=== PATIENT | female | born 1970 | race Caucasian/White ===

== ENCOUNTER 2020-06-27 06:12 | Day surgery (SDC) | payer OTHER, SELFPAY ==
[2020-06-27 06:28] VITALS: BP 90/58; PULSE 75; RESP 16; TEMP 36.5; O2SAT 100
--- NOTE | 2020-06-27 06:35 | W.COLOREPORT ---
Date of service: 06/27/20 Time of Service: 07:36 Colonoscopy Report Date of procedure: 06/27/20 Pre-op diagnosis general: RLQ pain and screening Post-op diagnosis procedure note: other (internal hemorrhoid) Procedure: Colonoscopy Surgeon: Zakiya Dumont Anesthesia proc note operative: other (General/ ASA 2/ Monserrat Larose CRNA) Estimated blood loss (mL): 0 Pathology: none sent Complications: None Disposition: same day Indications: A\\ 50 year old healthy female who has had some bowel habit changes since she went on a hike 1 year ago. She has tried probiotics and fiber which do seem to help sometimes. She still complains of increased gassiness. Sometimes her bowel movements are hard other times they are soft. Most of the time she does go daily but that there is times when she will only go once or twice a week. She has no family history of colon cancer. She does also have a history of kidney stones which is what she thought was going on. She did have some mild hydronephrosis on the right side on her original CT scan. Follow-up ultrasound showed resolution of this. She still complains of heaviness/pain in the right flank area. P\\ Colonoscopy under sedation. Risks, benefits and complications have been reviewed. Complications include but are not limited to bleeding, pain, perforation, missed small lesion/polyp, sore throat, aspiration and adverse reaction to the medications. Questions were entertained and answered to their satisfaction and they wished to proceed. No guarantees were given or implied. (2) Bowel habit changes Prep: Miralax/Dulcolax Procedure Start Time: 07:36 Procedure End Time: 08:00 Retraction Time: 14 minutes Findings: One internal hemorrhoid Procedure Description: After informed consent was obtained the patient was taken to the procedure room and placed in a left decubitous position. Monitors were applied and a time out was done. The patients name, date of , procedure, allergies to medications and metal in their body was reviewed. The patient was then sedated. Once sedated and comfortable a rectal exam was done. External exam was normal. Internal exam revealed a normal sphincter tone and no palpable masses. The scope was then introduced and retro-flexed. One internal hemorrhoids was identified. The scope was then advanced to the cecum without difficulty. The ileocecal valve and appendiceal orifice were identified. The prep was adequate. The scope was then slowly retracted over 14 minutes back into the rectum. There were no polyps and no diverticula. The scope was removed and the patient was woken up and taken back to Same day surgery in stable condition. The patient tolerated the procedure well and there were no immediate complications. Follow up: The patient should follow up in 10 years unless they develop changes in bowel habits or other new gastrointestinal complaints.
--- NOTE | 2020-06-27 06:36 | W.PM.DSUDISC ---
Discharge Plan Disposition Patient Disposition: HOME Condition: Good Discharge Details Reason For Visit: Abdominal pain and screening Attending Provider: Zakiya Dumont Primary Care Provider: Aruna Rico V Home Meds and New Rx's Prescriptions: Continued multivitamin Tablet 1 tab PO DAILY RF: 0 Discharge Instructions Instructions: Hemorrhoids (DC) Additional Instructions: Findings: One small internal hemorrhoid otherwise normal Follow up: 10 years Please call if you develop: fevers >101.5 Nausea or Vomiting Abdominal pain that is not transient DAY SURGERY UNIT POST ENDOSCOPY INSTRUCTIONS 1. Because there will be medication in your system for the next 24 hours, you may feel a little sleepy. Your coordination will be affected. Therefore: a. Do not drive or operate dangerous equipment for 24 hours. b. Do not drink alcohol beverages for 24 hours (not even beer). c. Plan to go home and rest for the day. 2. Generally there are no restrictions on your activity after a day or so has gone by, but you may feel a bit fatigued for a few days. 3 After you arrive home you may have a light meal and return to a normal diet as you can tolerate it without feeling sick to your stomach. 4. After surgery, you may feel pain or discomfort. This should be only transient, but if it persists please contact your doctor. 5. If there are any questions regarding the findings of your procedure, please feel free to contact your doctor. 6. If you are unable to contact your doctor with a problem, contact the hospital at [phone]. 7. Continue all your regular medications unless directed otherwise. I understand the above instructions and have no questions. Signature of Patient or Responsible Adult Escort Date/Time Name of Responsible Adult Escort Signature of Nurse Date/Time Activity:: Activity as Tolerated Diet:: High fiber diet Discharge Orders Discharge Orders: Discharge Order (Routine); Ordered 06/27/20 Ordered By: Zakiya Dumont
--- NOTE | 2020-06-27 06:59 | HPE_ITS ---
Date of service: 06/27/20 Time of Service: 06:59 Assessment and Plan Assessment and plan (1) Constipation: Status: Acute Assessment and plan: A\\ 50 year old healthy female who has had some bowel habit changes since she went on a hike 1 year ago. She has tried probiotics and fiber which do seem to help sometimes. She still complains of increased gassiness. Sometimes her bowel movements are hard other times they are soft. Most of the time she does go daily but that there is times when she will only go once or twice a week. She has no family history of colon cancer. She does also have a history of kidney stones which is what she thought was going on. She did have some mild hydronephrosis on the right side on her original CT scan. Follow-up ultrasound showed resolution of this. She still complains of heaviness/pain in the right flank area. P\\ Colonoscopy under sedation. Risks, benefits and complications have been reviewed. Complications include but are not limited to bleeding, pain, perforation, missed small lesion/polyp, sore throat, aspiration and adverse reaction to the medications. Questions were entertained and answered to their satisfaction and they wished to proceed. No guarantees were given or implied. Qualifiers: Constipation type: unspecified constipation type Qualified Code(s): K59.00 - Constipation, unspecified (2) Right lower quadrant pain: Status: Acute History of Present Illness Narrative: rs. Armendariz is a pleasant 50-year-old female who a year ago went hiking. After that she started to have some changes in her bowel habits and abdominal pain. She has her history of kidney stones and thought that that is what it was. She had enough pain at one point that she ended up going to the hospital. The CT scan done at that time showed some mild hydronephrosis on the right side. No kidney stone was identified. She was then seen by urology who did an ultrasound and at that point the hydronephrosis had resolved. She continues to have complain of constipation and increased gassiness. She is taking probiotics with fiber which helps with the bowel movements. She is not good about taking it on a daily basis. She has also tried MiraLAX but only would take it if she had not gone to the bathroom in a couple of days. She has never taken it on a daily basis. Sometimes the bowel movements are hard other times they are soft. She has noted no melena or hematochezia. She does not have pain with eating. She does not complain of heartburn. There is no family history of colon cancer. She is not a smoker or drinker. She is still having monthly periods. She denies nausea or vomiting. She describes heaviness in her right flank area. Since I saw her the flank pain has eased up. Review of Systems Cardiovascular Cardiovascular: Denies chest pain, Denies chest pain at rest, Denies irregular heart rhythm, Denies dyspnea and Denies dyspnea on exertion Respiratory Respiratory: Reports cough, Denies dyspnea and Denies dyspnea on exertion Gastrointestinal Gastrointestinal: Reports as per HPI Genitourinary Genitourinary: Denies dysuria, Reports urinary incontinence and Denies urinary urgency Endocrine Endocrine: Reports system reviewed and no additional complaints, except as documented Hematologic/Lymphatic Hematologic/Lymphatic: Denies easy bruising and Denies lymphadenopathy [facility] Medical History Anemia Asthma Cellulitis Denies having a cellulitis. E. coli UTI (urinary tract infection) Nephrolithiasis Pneumonia Tendon injury Left hand tendon surgery. Surgical History H/O section H/O left knee surgery H/O tubal ligation Family History Father Bladder cancer Mother Bladder cancer Social History Smoking/Tobacco Use Status: Never Alcohol Intake: never Drug use: Never Substance use type: does not use Household members: spouse Current gender identity: female Do you feel safe at home: Yes Do you feel safe in your relationship?: Yes Meds Home Medications and Allergies Home Medications Medication Instructions Recorded Confirmed Type multivitamin 1 tab PO DAILY 04/04/20 06/25/20 History Allergies Allergy/AdvReac Type Severity Reaction Status Date / Time amoxicillin [From Augmentin] Allergy Mild rash Verified 06/27/20 06:27 clavulanic acid Allergy Mild rash Verified 06/27/20 06:27 [From Augmentin] Exam Const General: healthy appearing and comfortable Resp Effort & Inspection: normal respiratory effort Auscultation: clear to auscultation bilaterally Cardio Rate: regular rate Rhythm: regular rhythm Heart Sounds: no click, no gallops and no murmurs Results Last Vital Signs Temp 97.7 F 06/27/20 06:28 Pulse 75 06/27/20 06:28 Resp 16 06/27/20 06:28 BP 90/58 L 06/27/20 06:28 Pulse Ox 100 06/27/20 06:28 COVID-19 Screening Have you,or household,traveled outside [place] in last 14 days?: Yes Had IN PERSON contact w/suspected or confirmed C-19 person: No
[2020-06-27] MEDS: Lactated Ringers 1,000 ML 80 ML IV (07:01)
[2020-06-27 08:39] VITALS: BP 83/49; PULSE 60; RESP 14; TEMP 36.6; O2SAT 100
== END 2020-06-27 08:53 | disposition home or self-care (01) ==
PROVIDERS: PCP Physician Assistant; Visit Provider Surgery
PROC: 0DJD8ZZ Inspection of Lower Intestinal Tract, Via Natural or Artificial Opening Endoscopic (ICD-10-PCS; CPT 45378; principal; 2020-06-27 07:30)
DX: K59.00 Constipation, unspecified (principal); R10.31 Right lower quadrant pain
CPT/HCPCS: 45378; NC; J2001

== ENCOUNTER 2020-10-16 08:14 | Outpatient (REF) | payer OTHER, SELFPAY ==
[2020-10-16 13:28] LABS: HGB 11.5 g/dL (11.2-15.7); MCH 27.6 pg (27.0-33.0); MCHC 31.9 % (32.0-36.0); MCV 86.3 fL (80-95); MPV 10.7 fL (8.0-11.0); Platelet Count 282 10^3/uL (130-400); RBC 4.17 10^6/uL (3.93-5.22); RDW-SD 40.9 fL; WBC 6.43 10^3/uL (4.4-10.8)
[2020-10-16 14:14] LABS: Anion Gap 9.2 mmol/L (3-11); BUN 11 mg/dL (7-18); CO2 25.8 mmol/L (21.0-32.0); CREATININE 0.79 mg/dL (0.55-1.02); Calcium 8.7 mg/dL (8.5-10.1); Calculated LDL 79 mg/dL (<100); Chloride 102 mmol/L (98-107); Cholesterol 149 mg/dL (<200); Glucose 83 mg/dL (74-106); HDL Cholesterol 65 mg/dL (40-60); Potassium 4.5 mmol/L (3.5-5.1); Sodium 137 mmol/L (136-145); Triglyceride 25 mg/dL (<150)
== END 2020-10-16 08:34 ==
LOC: NCHCN 08:14
PROVIDERS: PCP Physician Assistant; Visit Provider Physician Assistant
DX: Z00.00 Encounter for general adult medical examination without abnormal findings (principal); Z13.220 Encounter for screening for lipoid disorders; Z13.0 Encounter for screening for diseases of the blood and blood-forming organs and certain disorders involving the immune mechanism; Z13.228 Encounter for screening for other metabolic disorders
CPT/HCPCS: 80048; 80061; 85027

== ENCOUNTER → 2022-08-29 00:44 | Outpatient (CLI) | payer OTHER, SELFPAY ==
--- NOTE | 2022-08-29 | DI.MAMMO_ITS ---
Exam(s) MAMMO SCREENING EXAM: MAMMO SCREENING CLINICAL HISTORY: SCREENING, Z12.31 TECHNIQUE: Mammograms were interpreted according to the usual protocol including computer analysis w [facility] [place] CAD system, tomosynthesis and C-view imaging. COMPARISON: FINDINGS: The breasts are heterogeneously dense. No dominant mass or suspicious clumped microcalcification is identified in either breast. The current examination is compared with previous examinations includin g May 2019 and there has been no gross interval change in appearance in comparison with the prior studies. IMPRESSION: No specific evidence of malignancy at this time. Routine screening examinations are suggested at yea rly intervals due to the family history of breast carcinoma. BI-RADS Category 1 - Negative Breast Density - Category C - Heterogeneously dense
--- OUTSIDE RECORDS SUMMARY | 2022-08-29 00:49 | XMS_ITS | Encounter Summary ---
:1970 Author Organization [facility] [place] [address] Care Team Providers Name Role Phone DERREK Laureano, Aruna Primary Care Provider [phone] Encounter Details Date Type Department Care Team Description 12/21/2018 Hospital Encounter [place] [address] Social History Tobacco Use Types Packs/Day Years Used Date Smoking Tobacco: Never Smokeless Tobacco: Never Alcohol Use Standard Drinks/Week Comments No 0 (1 standard drink = 0.6 oz pure alcoho l) Sex Assigned at Date Recorded Not on file documented as of this encounter Medications at Time of Discharge Medication Sig Dispensed Refills Start Date End Date multivitamin Capsule MULTIVITAMINS CAPS 0 013 Lacto.acidophilus-Bif.anim PROBIOTIC DAILY CAPS 0 03/04/2018 clara (PROBIOTIC) 5 billion cell Capsule, Sprinkle ascorbic acid, vitamin C, every 24 hours. 0 03/04 (VITAMIN C) 500 mg Tablet documented as of this encounter Plan of Treatment Not on filedocumented as of this encounter Procedures Procedure Name Priority Date/Time Associated Diagnosis Comme [facility] SURGICAL PATHOLOGY Routine 12/21/2018 12:00 PM Re sults for this REPORT EDT procedure are i n the results section. documented in this encounter Results Surgical Pathology Report (12/21/2018 12:00 PM EDT) Component Value Ref Test Analysis Performed At [facility] Method Time Signature Surgical [id number] ? Location: [facility] Pathology [place] Report The signing pathologist has (i) examined the relevant preparation(s) for the [facility] specimen(s) and (ii) rendered or confirmed the diagnosis(es) . HOSPITAL LABORATORY . 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 Electronically signed by: ??Ceasar GARSIA, Nilay Kee Verified: ??12/23/2018 ?Dermatopathologist, Bone & Soft Tissue Pathologist Performed at: ??-[facility] [place], [place], [place] DISCUSSION Sections show a pathcy lichenoid lymphoh istiocytic inflammation with interface reaction, necrotic keratino cytes and melanophages within the dermis. There are increased solitary melanocy bonilla withthin the epidermis without significant atypia or confluent growth. In additi on a superficial to mid perivascular lymphohistiocytic infilrate is also noted. ?? Multiple deeper sections have b een examined. It is difficult to categorize these changes. The y could represent a lichenoid keratosis. At this point of time I do no believe that the increased intraepidermal melanocytes represent a mal ignant melanocytic neoplasm. Clinical monitoring would be prudent with a low threshold for resampling should the lesi on recur. CLINICAL INFORMATION Specimen Submitted: A - Right presternal chest, shave Clinical History and Diagnosis: 3-4 week history of sensitiv e ~4 mm macule, stings, santos in a patient with history of increased sun exposure; nevus Referring Identifier: ?(not provided) SPECIMEN PROCESSING A - Labeled/Fixative: Patient demographics, formalin. Quantity/Size: ??Single, 0.9 x 0.9 x 0.1 cm. Tissue Description: Shave of holt-pink skin. Sections/Processing: Inked, quadrisected and entirely submitted in 1 cassette lab eled A1. ??apb Specimen (Source) Anatomical Collection Method Collection Time Re ceived Time Location / / Volume Laterality 12/21/2018 12:00 PM EDT Jorge Galindo MD PATHOLOGY/CYTOLOGY ORDERABLE S Performing Organization Address City/State/[place] [address] documented in this encounter Visit Diagnoses Not on filedocumented in this encounter Care Teams Belt Tender Relationship Specialty Start Date End Date Aruna Rico PA PCP - General 12/11/14 documented as of this encounter
--- OUTSIDE RECORDS SUMMARY | 2022-08-29 00:49 | XMS_ITS | Encounter Summary ---
:1970 Author Organization [facility] [place] [address] Care Team Providers Name Role Phone DERREK Laureano Nataliya Primary Care Provider [phone] Reason for Visit Reason Onset Date Comments Results 07/01/2018 Encounter Details Date Type Department Care Team Description 07/01/2018 Telephone Orthopaedics at [facility] Bindu Putnam RMA Results [facility] [place] [address] Social History Tobacco Use Types Packs/Day Years Used Date Smoking Tobacco: Never Smokeless Tobacco: Never Alcohol Use Standard Drinks/Week Comments No 0 (1 standard drink = 0.6 oz pure alcoho l) Sex Assigned at Date Recorded Not on file documented as of this encounter Miscellaneous Notes Telephone Encounter - Ramona Wright RN - 07/06/2018 10:46 AM EDT Subjective: Telephone call form patient. She is returning the call from yesterday regarding her MRI. Plan:Reviewed note below with patient regarding recommendations. She is already doing PT. She is aware and in agreement with the plan. She was advised to call with any further concerns or questions andshould call if no improvement with PT. Patient/Responsible democrat voices an understanding of advice? Yes Patient/Responsible democrat intends to comply with action/disposition:Yes Telephone Encounter - Linda Gallo RN - 07/05/2018 9:47 AM EDT Reviewed imaging with Saeed ANGLIN - due to partial thickness tears, we are recommending a course of PT at this time, if this is not successful we can consider injections. Attempted to call patient with this advice, reached identified voicemail, left message with request to call us with how she would like to proceed. We are happy to place PT orders and/or schedule a follow up appointment on Thursday or to discuss further Telephone Encounter - Bindu Putnam RMA - 07/01/2018 3:53 PM EDT Subjective: RESULTS [place]gar[place] questions/Assessment: Carolina called for the results of her MRI. She reports that she had it done on06/29/18. Over the next 4 days she will be traveling and would like Dr Hall to call her cell phone. [phone] Plan: I let Carolina know that I would send a message to Dr Hall. Patient/Responsible democrat voices an understanding of advice? yes documented in this encounter Plan of Treatment Not on filedocumented as of this encounter Visit Diagnoses Not on filedocumented in this encounter Care Teams Wheel Blocker Relationship Specialty Start Date End Date Aruna Rico PA PCP - General 12/11/14 documented as of this encounter
--- OUTSIDE RECORDS SUMMARY | 2022-08-29 00:49 | XMS_ITS | Encounter Summary ---
:1970 Author Organization [facility] [place] [address] Care Team Providers Name Role Phone DERREK Laureano, Aruna Primary Care Provider [phone] Encounter Details Date Type Department Care Team Description 07/17/2016 Ancillary Procedure Radiology Library at [facility] DERREK [facility] [address] [place] [address] [place] [address] [phone] Social History Tobacco Use Types Packs/Day Years Used Date Smoking Tobacco: Never Sex Assigned at Date Recorded Not on file documented as of this encounter Plan of Treatment Not on filedocumented as of this encounter Procedures Procedure Name Priority Date/Time Associated Diagnosis Comme nts FILM LIBRARY Routine 07/17/2016 12:00 AM Results for this STORAGE ONLY CT EDT procedure ar e in ABDOMEN AND PELVIS the resul ts section. documented in this encounter Results Film Library- Storage Only CT Abdomen & Pelvis (07/17/2016 12:00 AM EDT) Specimen (Source) Anatomical Location Collection Method / Collectio n Time Received Time / Laterality Volume Narrative RAD - 09/22/2019 9:57 AM EST This exam is auto-finalizing. It's purpo se is for storage only. DERREK [place]ning [facility] FILM LIBRARY ORDERABLES Performing Organization Address City/State/ZIP Code Phon e Number RAD [facility] [place], [place] documented in this encounter Visit Diagnoses Not on filedocumented in this encounter Care Teams Blood Donor Recruiter Relationship Specialty Start Date End Date Aruna Rico PA PCP - General 12/11/14 documented as of this encounter
--- OUTSIDE RECORDS SUMMARY | 2022-08-29 00:49 | XMS_ITS | Encounter Summary ---
:1970 Author Organization [facility] [place] [address] Care Team Providers Name Role Phone DERREK Laureano, Aruna Primary Care Provider [phone] Reason for Referral Diagnostic Test (Routine) - Closed Specialty Diagnoses / Procedures Referred By Contact Refer red To Contact Radiology Diagnoses Chronic pain in left shoulder Ryan Hall MD [facility] Rad Mri Procedures MRI Shoulder wo Contrast Left (Generic) [facility] [place] [address] [place] [address] Referral ID Status Reason Start Date Expiration Date Visits V isits Requested Authorized [id number] Closed Specialty 06/29/2018 08/27/2018 1 1 Service Requested Reason for Visit Diagnostic Test (Routine) - Closed Specialty Diagnoses / Procedures Referred By Contact Refer red To Contact Radiology Diagnoses Chronic pain in left shoulder Ryan Hall MD [facility] Rad Mri Procedures MRI Shoulder wo Contrast Left (Generic) [facility] [place] [address] [place] [address] Referral ID Status Reason Start Date Expiration Date Visits V isits Requested Authorized [id number] Closed Specialty 06/29/2018 08/27/2018 1 1 Service Requested Encounter Details Date Type Department Care Team Description 06/29/2018 Hospital Encounter MRI at [facility] Ryan Hall, Chronic pain in left [facility] shoulder [facility] [address] ORTHOPAEDIC [phone] [place] [address] Social History Tobacco Use Types Packs/Day Years [...] Name Priority Date/Time Associated Diagnosis Comme nts MRI SHOULDER LEFT Routine 06/29/2018 6:17 PM Chronic pain in l eft Results for this WO CONTRAST EDT shoulder procedure are i n the results section. documented in this encounter Results MRI Shoulder wo Contrast Left (Generic) (06/29/2018 6:17 PM EDT) Anatomical Region Laterality Modality Shoulder Left Magnetic Resonance Specimen (Source) Anatomical Location Collection Method / Collectio n Time Received Time / Laterality Volume Impressions 06/30/2018 8:25 AM EDT 1. ??Tendinosis and low-grade articular-surface fraying of the subscapularis tendon. Focal low-grade partial-thicknes s articular-surface tear of the anteriormost supraspinatus tendon fibers , best seen on series 6 image 23, measuring no more than 0.5 cm in AP dime nsion, without tendon retraction or muscle atrophy. 2. ??Moderate to marked AC joint degener ative hypertrophy. 3. ??Degenerative fraying of the posteri or superior labrum, without discernible hyaline cartilage defect. 4. ??Unremarkable MR appearance of the l tiki head of the biceps tendon. Narrative 06/30/2018 8:25 AM EDT EXAMINATION: MRI SHOULDER WO CONTRAST LEFT (GENERIC) CLINICAL HISTORY: left shoulder pain TECHNIQUE: Routine noncontrast MR of the Left shoulder was performed. COMPARISON: Attention is also directed t o left shoulder radiographs dated 05/31/2018 FINDINGS: Glenohumeral joint: There is no fracture or bone marrow edema. Glenohumeral alignment is normal. No focal cartilage defect is discerned. There is no glenohumeral joint effusion. Acromioclavicular joint: The acromion griffin s a flat morphology. The acromioclavicular joint demonstrates mod erate to marked degenerative arthropathy characterized by capsular thickening, sm all marginal osteophytes, and minimal reactive marrow signal change. The hyper trophic acromioclavicular joint indents the underlying supraspinatus myotendinou s junction. Rotator cuff and bursae: There is tendin osis and low-grade articular-surface fraying of the subscapularis tendon. The re is a focal low-grade partial-thickness articular-surface tear of the anteriormost supraspinatus tendon fibers, best seen on series 6 neo ge 23, measuring no more than 0.5 cm in anteroposterior dimension, without tendo n retraction. The infraspinatus and teres minor tendons are normal. There is no muscle atrophy. There is no subacromial/subdeltoid bursal fluid. Biceps tendon and glenoid labrum: The bi ceps tendon is normal in appearance. There is degenerative fraying of the pos terior superior labrum. Other: Incidentally noted lobulated T2-b right structure humeral head measuring up to 0.9 cm without surrounding bone ma rrow edema is compatible with a cartilage rest or a cartilage lesion suc h as an enchondroma. Procedure Note Freda Avila MD - 06/30/2018Formatting o f this note might be different from the original. EXAMINATION: MRI SHOULDER WO CONTRAST VIVIAN FT (GENERIC) CLINICAL HISTORY: left shoulder pain TECHNIQUE: Routine noncontrast MR of the Left shoulder was performed. COMPARISON: Attention is also directed t o left shoulder radiographs dated 05/31/2018 FINDINGS: Glenohumeral joint: There is no fracture or bone marrow edema. Glenohumeral alignment is normal. No focal cartilage defect is discerned. There is no glenohumeral joint effusion. Acromioclavicular joint: The acromion griffin s a flat morphology. The acromioclavicular joint demonstrates mod erate to marked degenerative arthropathy characterized by capsular thickening, sm all marginal osteophytes, and minimal reactive marrow signal change. The hyper trophic acromioclavicular joint indents the underlying supraspinatus myotendinou s junction. Rotator cuff and bursae: There is tendin osis and low-grade articular-surface fraying of the subscapularis tendon. The re is a focal low-grade partial-thickness articular-surface tear of the anteriormost supraspinatus tendon fibers, best seen on series 6 neo ge 23, measuring no more than 0.5 cm in anteroposterior dimension, without tendo n retraction. The infraspinatus and teres minor tendons are normal. There is no muscle atrophy. There is no subacromial/subdeltoid bursal fluid. Biceps tendon and glenoid labrum: The bi ceps tendon is normal in appearance. There is degenerative fraying of the pos terior superior labrum. Other: Incidentally noted lobulated T2-b right structure humeral head measuring up to 0.9 cm without surrounding bone ma rrow edema is compatible with a cartilage rest or a cartilage lesion suc h as an enchondroma. IMPRESSION 1. Tendinosis and low-grade articular-brown rface fraying of the subscapularis tendon. Focal low-grade partial-thicknes s articular-surface tear of the anteriormost supraspinatus tendon fibers , best seen on series 6 image 23, measuring no more than 0.5 cm in AP dime nsion, without tendon retraction or muscle atrophy. 2. Moderate to marked AC joint degenerat shannan hypertrophy. 3. Degenerative fraying of the posterior superior labrum, without discernible hyaline cartilage defect. 4. Unremarkable MR appearance of the rashid g head of the biceps tendon. Ryan Hall MD [facility] ORDERABLES documented in this encounter Visit Diagnoses Diagnosis Chronic pain in left shoulder Pain in joint, shoulder region documented in this encounter Care Teams Nurse Informatics Educator Relationship Specialty Start Date End Date Aruna Rico PA PCP - General 12/11/14 documented as of this encounter
--- OUTSIDE RECORDS SUMMARY | 2022-08-29 00:49 | XMS_ITS | Clinical Summary ---
:1970 Author Organization [facility] [place] [address] Care Team Providers Name Role Phone DERREK Laureano, Aruna Primary Care Provider [phone] Allergies No known active allergies Medications Medication Sig Dispensed Refills Start Date End Date Status multivitamin Capsule MULTIVITAMINS CAPS 0 12/08/2012 Active Lacto.acidophilus-Bi PROBIOTIC DAILY CAPS 0 03/04/20 18 Active f.animalis (PROBIOTIC) 5 billion cell Capsule, Sprinkle ascorbic acid, every 24 hours. 0 03/04/2018 Active vitamin C, (VITAMIN C) 500 mg Tablet Active Problems Problem Noted Date Acute pain of left shoulder 06/29/2018 Nevus 01/18/2015 Family History Medical History Relation Comments Cancer Father Cancer Mother Relation Status Comments Father Mother Social History Tobacco Use Types Packs/Day Years Used Date Smoking Tobacco: Never Smokeless Tobacco: Never Alcohol Use Standard Drinks/Week Comments No 0 (1 standard drink = 0.6 oz pure alcoho l) Sex Assigned at Date Recorded Not on file Last Filed Vital Signs Vital Sign Reading Time Taken Comments Blood Pressure 110/64 07/25/2019 6:55 PM EDT Pulse 62 07/25/2019 6:55 PM EDT Temperature 37.1 ??C (98.8 ??F) 07/25/2019 6:55 PM EDT Respiratory Rate 15 07/25/2019 6:55 PM EDT Oxygen Saturation 100% 07/25/2019 6:55 PM EDT Inhaled Oxygen Concentration - - Weight 72.1 kg (159 lb) 07/25/2019 6:55 PM EDT Height 165.1 cm (5' 5) 07/25/2019 6:55 PM EDT Body Mass Index 26.46 07/25/2019 6:55 PM EDT Plan of Treatment Health Maintenance Due Date Last Done Comments Hepatitis B vaccine (0-59 yrs) (1 of 3 - 3-dose series) 04/05/19 72 Covid-19 Vaccine (#1) 1970 HIV screen 1990 Hepatitis C Screening 1990 Tdap adult 1991 Tetanus vaccine 1991 HPV test 2002 PAP Smear 2002 Breast Cancer Share Decision Needed 2012 Colonoscopy 2017 Breast Cancer screening 2022 Zoster vaccine (1 of 2) 2022 Influenza (Flu) vaccine (1 of 1 - Influenza standard 06/05/2022 series) Insurance Payer Benefit Plan / Subscriber ID Effective Dates Phone Addre ss Type Group MVP MVP [place] [id number] 2019-Present [phone] [facility] [address] [place] [address] Care Teams Hide Handler Relationship Specialty Start Date End Date Aruna Rico PA PCP - General 12/11/14
--- OUTSIDE RECORDS SUMMARY | 2022-08-29 00:49 | XMS_ITS | Encounter Summary ---
:1970 Author Organization [facility] [place] [address] Care Team Providers Name Role Phone DERREK Laureano Nataliya Primary Care Provider [phone] Reason for Referral Diagnostic Test (Routine) - Closed Specialty Diagnoses / Procedures Referred By Contact Refer red To Contact Radiology Diagnoses Chronic pain in left shoulder Ryan Hall MD [facility] Rad Mri Procedures MRI Shoulder wo Contrast Left (Generic) [facility] [place] [address] [place] [address] Referral ID Status Reason Start Date Expiration Date Visits V isits Requested Authorized [id number] Closed Specialty 06/29/2018 08/27/2018 1 1 Service Requested Reason for Visit Reason Comments Left Shoulder Pain Consultation (Routine) - Specialty Diagnoses / Procedures Referred By Contact Refer red To Contact Orthopaedics Diagnoses LEFT SHOULDER PAIN Aruna Rico V [facility] [place] [facility] [address] PA [address] [address] [place] [address] Referral ID Status Reason Start Date Expiration Date Visits V isits Requested Authorized [id number] Consult, 06/14/2018 06/14/2019 6 6 [facility] Encounter Details Date Type Department Care Team Description 06/29/2018 Office Visit Orthopaedics at [facility] Chronic pain in left [facility] [place] [phone] Social History Tobacco Use Types Packs/Day Years Used Date Smoking Tobacco: Never Smokeless Tobacco: Never Alcohol Use Standard Drinks/Week Comments No 0 (1 standard drink = 0.6 oz pure alcoho l) Sex Assigned at Date Recorded Not on file documented as of this encounter Last Filed Vital Signs Vital Sign Reading Time Taken Comments Blood Pressure 106/67 06/29/2018 9:33 AM EDT Pulse 58 06/29/2018 9:33 AM EDT Temperature - - Respiratory Rate - - Oxygen Saturation - - Inhaled Oxygen Concentration - - Weight 69.4 kg (153 lb) 06/29/2018 9:33 AM EDT stad Height 166.4 cm (5' 5.5) 06/29/2018 9:33 AM EDT staed Body Mass Index 25.07 06/29/2018 9:33 AM EDT documented in this encounter Progress Notes Saeed Bella PA - 06/29/2018 9:30 AM EDT PATIENT NAME: Carolina Armendariz AGE: 48 y.o. MR#: [id number] DATE OF VISIT: 06/29/2018 DATE OF INJURY/ONSET: 2017 STAFF: Dr. Hall CHIEF COMPLAINT: Left shoulder pain HISTORY OF PRESENT ILLNESS: Ms. Armendariz is a right hand dominant 48 y.o. female who comes into clinic today for evaluation of her left shoulder. She has been experiencing pain since she fell on stairs inFebruary of 2017. Patient has not had any formal PT for this, but has been doing gentle ROM exercises she got from a friend who practices as a PT. She uses ice as much as she can, but does not take anyTylenol or Ibuprofen for the pain. Patients states she is unable to sleep on the left shoulder due to pain, and has had decreased ROM since November. She has difficulty with her ADLs, most specificallytasks that require her to reach behind her back and overhead. Patient is quite active with hiking and has noticed pain with this as well as any sort of throwing motion. The pain radiates down her arm, but she denies any numbness or tingling. At today's visit, Ms. Armendariz does not have any fevers, chills, or other signs of infection. Medications and Allergies were reviewed in eD-[facility] PAST MEDICAL HX: History reviewed. No pertinent past medical history. PAST SURGICAL HX: History reviewed. No pertinent surgical history. SOCIAL HX: Social History Occupational History ??? Not on file. Social History Main Topics ??? Smoking status: Never Smoker ??? Smokeless tobacco: Never Used ??? Alcohol use No ??? Drug use: No ??? Sexual activity: Not on file Activities: Hiking, skiing ROS: Musculoskeletal: see HPI General Health, Prior Treatments, PreExisting Condition, Health Habits, About You 06/29/2018 PROMIS-10 General Health Excellent PROMIS-10 Quality of Life Excellent PROMIS-10 Physical Health Excellent PROMIS-10 Mental Health Excellent PROMIS-10 Social Activity Excellent PROMIS-10 Everyday Activities Completely PROMIS-10 Pain 8 PROMIS-10 Fatigue None PROMIS-10 Social Roles Excellent PROMIS-10 Anxious or Depressed Rarely PROMIS PHYSICAL SCORE (range 16-68) 54.1 PROMIS MENTAL SCORE (range 21-68) 62.5 Alzheimers or dementia No Cirrohosis or liver disease No HIV/AIDS No Pain in more than one joint in legs Yes Back or neck pain No Heart attack No Heart failure No Unclog/bypass leg arteries No Stroke, blood clot, TIA No Asthma Yes Take medication for asthma No Emphysema, chronic bronchities, or COPD No Stomach ulcers/peptic ulcer disease No Diabetes No Poor kidney function No Rheumatic condtions No Cancer No Weight (lbs) 152 Height (feet) 5 feet Height (Inches) 5 BMI 25.29 (Overweight) Ever used tobacco products No Ever used alcoholic beverages Yes Alcohol frequency Once or twice WHO - Alcohol Advice 2 (You are at low risk of health and other problems from your current pattern of use.) Live Alone No Marital situation Living with significant other Schooling More than 4 - year college Combined Household Income $50,000 to less than $75,000 # People Supported 3 Egyptian, , No, not Egyptian// Race White Health Literacy Extremely Currently working Yes Current job situation Full-time [facility] Response 06/29/2018 ASES VAS-LEFT 7 ASES ADL-LEFT ARM 7 ASES LEFT ARM 26.66 PHYSICAL EXAM: Ms. Armendariz is a 48 y.o. female who is alert and oriented. She is in no acute discomfort and is resting comfortably in the exam room. Inspection: No erythema, swelling or warmth is noted over the left shoulder. Palpation: She has point tenderness over the GH joint and biceps tendon. ROM: Forward flexion- 150 degrees External rotation- 30 degrees Internal rotation- PSIS Abduction- 120 degrees Strength: Forward flexion- 5/5 External rotation- 5/5 Internal rotation- 4/5 Abduction-4/5 Orthopedic testing: Empty can- positive Speed's- positive Lift off-positive Song's-negative Yergason's- negative Hawkin's-negative Neurovascular: Sensation and motor function are in tact along the axillary, musculocutaneous, radial, ulnar, and median nerve roots. Cap refill 3+, distal radial pulse 2+. DIAGNOSTIC STUDIES: Xrays from today were personally reviewed and there is no evidence of fracture of dislocation. Joint space appears to be preserved. It is difficult to see the spacing between the acromion and humeral head as a true AP was not done. ASSESSMENT: Mr. Armendariz is a 49 y/o female who is 7 months s/p fall onto her shoulder. She has had continued pain since this time with decreased ROM. Her exam was significant for weakness with abduction and internal rotation which was supported by a positive empty can and liftoff tests. This is suggestive of a a rotator cuff tear, but an MRI is warranted to confirm this. Due to the distance she has to travel, if she cannot get the MRI done today, she would like to have this done closer to home in [place]. PLAN: We discussed the use of a broom/stick to perform gentle ROM exercises. An order for left shoulder MRI w/o contrast was placed and may be completed today if room is available. If she is unable to complete this today, she would like to have it completed closer to home. She will follow up once the MRI has been completed to further discuss treatment options. The patient understands to contact us ifthey have any other questions or concerns. I saw Ms. Armendariz with Dr. Hall and he agrees with this plan. The above documentation was completed using [employer] voice recognition software. documented in this encounter Plan of Treatment Not on filedocumented as of this encounter Results MRI Shoulder wo Contrast [...] the original. EXAMINATION: MRI SHOULDER WO CONTRAST LE FT (GENERIC) CLINICAL HISTORY: left shoulder pain [...] rashid g head of the biceps tendon. Rayn Hall MD IMG MRI ORDERABLES documented in this encounter Visit Diagnoses Diagnosis Chronic pain in left shoulder Pain in joint, shoulder region Chronic pain in left shoulder Pain in joint, shoulder region documented in this encounter Care Teams Info Analyst Relationship Specialty Start Date End Date Aruna Rico PA PCP - General 12/11/14 documented as of this encounter
--- OUTSIDE RECORDS SUMMARY | 2022-08-29 00:49 | XMS_ITS | Encounter Summary ---
:1970 Author Organization [facility] [place] [address] Care Team Providers Name Role Phone DERREK Laureano, Aruna Primary Care Provider [phone] Encounter Details Date Type Department Care Team Description 05/31/2018 Hospital Encounter Radiology [facility] at [facility] [place] [address] [place] [id number] [phone] (Wo rk) Social History Tobacco Use Types Packs/Day Years [...] Associated Diagnosis Comme nts FILM LIBRARY Routine 05/31/2018 12:00 AM Results for this STORAGE ONLY DX EDT procedure ar e in SHOULDER the results section. documented in this encounter Results Film Library- Storage Only DX Shoulder (05/31/2018 12:00 AM EDT) Specimen (Source) Anatomical Location Collection Method / Collectio n Time Received Time / Laterality Volume Narrative RAD - 06/15/2018 11:00 AM EDT This exam is for storage only and is aut o-finalizing. Ryan Hall MD IMG FILM LIBRARY ORDERABLES Performing Organization Address City/State/ZIP Code Phon e Number RAD [place], [place] documented in this encounter Visit Diagnoses Not on filedocumented in this encounter Care Teams Hairspring Staker Relationship Specialty Start Date End Date Aruna Rico PA PCP - General 12/11/14 documented as of this encounter
--- OUTSIDE RECORDS SUMMARY | 2022-08-29 00:49 | XMS_ITS | Encounter Summary ---
:1970 Author Organization [facility] [place] [address] Care Team Providers Name Role Phone DERREK Laureano Nataliya Primary Care Provider [phone] Reason for Visit Reason Comments Follow-up Left Shoulder Pain Left Hand Pain ganglion/long finger lac Consultation (Routine) - Specialty Diagnoses / Procedures Referred By Contact Refer red To Contact Orthopaedics Diagnoses GANGLION CYST OF LEFT DORSAL WRIST, PAIN LEFT MIDDLE FINGER LAC OCT 2017 Aruna Rico V [facility] Procedures requesting hand specialist DERREK [address] [address] [place] [address] Referral ID Status Reason Start Date Expiration Date Visits V isits Requested Authorized [id number] Consult, 06/02/2018 06/02/2019 6 6 [facility] Encounter Details Date Type Department Care Team Description 08/10/2018 Office Visit Orthopaedics at [facility] [place] Adhesive capsulitis of [facility] Vidhya [place] [address] Social History Tobacco Use Types Packs/Day Years Used Date Smoking Tobacco: Never Smokeless Tobacco: Never Alcohol Use Standard Drinks/Week Comments No 0 (1 standard drink = 0.6 oz pure alcoho l) Sex Assigned at Date Recorded Not on file documented as of this encounter Last Filed Vital Signs Vital Sign Reading Time Taken Comments Blood Pressure 99/60 08/10/2018 2:07 PM EST Pulse 77 08/10/2018 2:07 PM EST Temperature - - Respiratory Rate - - Oxygen Saturation - - Inhaled Oxygen Concentration - - Weight 70.3 kg (155 lb) 08/10/2018 2:07 PM EST Height 166.4 cm (5' 5.5) 08/10/2018 2:07 PM EST Body Mass Index 25.4 08/10/2018 2:07 PM EST documented in this encounter Progress Notes Ryan Hall MD - 08/10/2018 2:00 PM EST Ryan Hall dictating orthopedic consultation on Carolina Armendariz. She has a complicated history that has been clearly outlined in the past. After we last saw her and reviewed the MRI of her left shoulder-[place] had a left shoulder injection. She describes a subacromial injection rather than a glenohumeral injection. She reports that it is very uncomfortable. She rested for a while and is just begun increasing her range of motion. She is pleased with the physical therapist with with whom she is working and feels that that has helped and is continuing to improve. She is also asking about her left middle finger. History of that isthat she sustained a laceration on the dorsum of the PIP joint of her left middle finger in October while on [place]. She Dr. she saw Dr. Carvajal who repaired what sounds like her central slip/dorsal apparatus. She then had apparently scarring postoperatively and it sounds as though she had aTina lysis. She is been working in hand therapy but has questions about the cyst on her left middle finger. Physical examination: Bjjivhd-mbyn-ccfkwxqdm very pleasant fit appearing white female no acute distress Left shoulder-she has no pain at the AC joint she has pain off the anterolateral corner of the acromion in both anterior posterior joint line tenderness no evidence of infection total active elevation approximately 130 degrees she has significant limitation of both her internal and external rotation she has 4+ out of 5 strength with supraspinatus infraspinatus subscapularis testing. Her left elbow wrist are nontender. Her left middle finger she has well-healed incisions over the PIP joint. There is no evidence of infection I do think she has a prominent suture. She is painless range of motion of the MCP joint she lacks approximately 10 degrees of full extension at the PIP joint her flexion at the P IP joint is approximately 80 degrees. DIP joint approximately 30 degrees. Distal neurovascular exam is intact. X-rays of the left hand were reviewed I see no obvious bony deformities. Plan: We long discussion regarding this current situation with respect to her left shoulder and her left middle finger. At this point I think she would benefit most by continued therapy on the left shoulder to optimize her range of motion. If she remains symptomatic after she is had return of her range of motion-perhaps she would benefit by a left shoulder arthroscopy to address her partial-thicknessrotator cuff tear and impingement. With respect to her left middle finger I have encouraged her to continue retrograde massage continueto work on her range of motion. She wanted to leave it that she would return on a as needed basis. documented in this encounter Plan of Treatment Not on filedocumented as of this encounter Visit Diagnoses Diagnosis Adhesive capsulitis of left shoulder Adhesive capsulitis of shoulder documented in this encounter Care Teams Business Performance Analyst Relationship Specialty Start Date End Date Aruna Rico PA PCP - General 12/11/14 documented as of this encounter
--- OUTSIDE RECORDS SUMMARY | 2022-08-29 00:49 | XMS_ITS | Encounter Summary ---
:1970 Author Organization [facility] [place] [address] Care Team Providers Name Role Phone DERREK Laureano Nataliya Primary Care Provider [phone] Encounter Details Date Type Department Care Team Description 12/22/2018 External Results Medical Records Provider, [place] [address] Social History Tobacco Use Types Packs/Day [...] Name Priority Date/Time Associated Diagnosis Comme nts SURGICAL PATHOLOGY Routine 12/22/2018 Results f or this SCAN procedure are i n the results section . documented in this encounter Results Scan Doc: Surgical Pathology (12/22/2018) Narrative This result has an attachment that is no t available. Historical Provider MD MEDIA MGR SCAN EXT ORDR/RSLT documented in this encounter Visit Diagnoses Not on filedocumented in this encounter Care Teams Truck Safety Inspector Relationship Specialty Start Date End Date Aruna Rico PA PCP - General 12/11/14 documented as of this encounter
--- OUTSIDE RECORDS SUMMARY | 2022-08-29 00:49 | XMS_ITS | Encounter Summary ---
:1970 Author Organization [facility] [place] [address] Care Team Providers Name Role Phone DERREK Laureano, Aruna Primary Care Provider [phone] Encounter Details Date Type Department Care Team Description 12/19/2020 Hospital [place] [address] Social History Tobacco Use Types Packs/Day [...] Name Priority Date/Time Associated Diagnosis Comme nts COVID-19 PCR Routine 12/19/2020 1:00 PM Results f or this EDT procedure are i n the results section . documented in this encounter Results COVID-19 PCR (12/19/2020 1:00 PM EDT) [facility] Method Time Signature SARS-CoV-2 Not Detected Not Detected [facility] Comment: This result should be interpreted in com bination with the clinical observations, patient history and epidem iological information in making a final diagnosis. For testing of asymptomatic i ndividuals, assay performance characteristics and clinical utility hav e not been evaluated. Testing for SARS-CoV-2 (Severe acute respiratory syn drome coronavirus 2, formerly known as 2019 novel coronavirus or 2019-nCoV) to aid in the diagnosis of COVID-19 is performed using the [employer] RealTime SARS -CoV-2 Assay as authorized by the FDA Emergency Use Authorization (EUA). This EUA assay is intended for In-vitro Diagnostic (IVD) use with respiratory sp ecimens such as nasopharyngeal swabs collected from individuals during the ac marjan phase of infection. This assay is performed based on the instructions for use provided by [employer] and additional guidance provided by CDC and FDA. Testing is performed in the [facility] Laboratory within the Department of Pathology and Laboratory Medicine at [facility], certified under the Clinical Laboratory Improvement Amendments of 1988 (CLIA), 42 U.S.C. 263a, to perform high complexi ty tests. Assay performance has been verified according to clinical laborator y regulatory requirements for use with specimens collected from individuals vishal pected of COVID-19. Test results are provided above. A result of ? Not Detected? indicates that the viral RNA target is not present above the limit of detect ion, but does not preclude SARS-CoV-2 infection. False negative results may oc cur if a specimen is improperly collected, transported or handled; if am plification inhibitors are present; or if inadequate numbers of viral particles are present in the specimen. When a diagnostic test is negative, the possibi lity of a false negative result should be considered in the context of a patien t? s recent exposures and the presence of clinical signs and symptoms consisten t with COVID-19. A result of ? Detected? indicates that RNA from SARS-CoV-2 was d etected and the patient is infected. As required or requested by public health a uthorities, positive specimens may be sent for additional testing. Positive an d negative predictive values for this test are highly dependent on disease pre valence. A result of ? Invalid? indicates that neither the viral RNA tar gets nor the internal control target was detected. An invalid result suggests the presence of inhibitors. Recollection and re-testing is recommend ed in the case of an invalid result. CDC COVID-19 criteria for testing on hum an specimens and clinical management guidance information are available at e CDC Coronavirus Disease 2019 (COVID-19) webpage under ? Information for Healthcare Professionals? (https://www.cdc.gov/coronavirus/2019-nc ov/hcp/index.html) Additional information about this and ot her EUA tests can be found in provider and patient fact sheets at the following FDA website: https://www.fda.gov/medical-devices/tubmfrosvub-dhcdpry-9577-taoif-38-ucetxxeoq- fyb-odytjhhdjldryj-vncetob-devices/donqh-nnfekujkvej-mkih SARS-Cov-2 RNA Source SECUR[employer] ANALYST Swab [facility] Specimen (Source) Anatomical Collection Method Collection Time Re ceived Time Location / / Volume Laterality Nasopharyngeal swab Other / Unknown 12/19/2020 1:00 (specimen) PM EDT 2:36 AM EDT Resulting Agency Comment Spec In Lab Leonila Sanders CUSTOMER SERVICE OFFICER MICROBIOLOGY - GENERAL ORDER ALFREDITO Performing Organization Address City/State/[place] [address] documented in this encounter Visit Diagnoses Not on filedocumented in this encounter Care Teams Director Supply Chain Relationship Specialty Start Date End Date Aruna Rico PA PCP - General 12/11/14 documented as of this encounter
--- OUTSIDE RECORDS SUMMARY | 2022-08-29 00:49 | XMS_ITS | Encounter Summary ---
:1970 Author Organization [facility] [place] [address] Care Team Providers Name Role Phone DERREK Laureano Nataliya Primary Care Provider [phone] Reason for Visit Reason Comments Abdominal Pain Encounter Details Date Type Department Care Team Description 07/25/2019 Emergency [place] [address] Social History Tobacco Use Types Packs/Day [...] Mass Index 26.46 07/25/2019 6:55 PM EDT documented in this encounter Medications at Time of Discharge Medication Sig Dispensed Refills Start Date End Date multivitamin Capsule MULTIVITAMINS CAPS 0 013 Lacto.acidophilus-Bif.anim PROBIOTIC DAILY CAPS 0 03/04/2018 clara (PROBIOTIC) 5 billion cell Capsule, Sprinkle ascorbic acid, vitamin C, every 24 hours. 0 03/04 (VITAMIN C) 500 mg Tablet documented as of this encounter Miscellaneous Notes ED Triage - Debbi Tipton, RN - 07/25/2019 6:53 PM EDT Possible appendicitis. Was seen at urgent care and told to come to the ED for further workup Abdominal pain started Thursday. Lower right quadrant. Has had constipation. With some dizziness documented in this encounter Plan of Treatment Not on filedocumented as of this encounter Visit Diagnoses Not on filedocumented in this encounter Care Teams Debridging Machine Operator Relationship Specialty Start Date End Date Aruna Rico PA PCP - General 12/11/14 documented as of this encounter
--- OUTSIDE RECORDS SUMMARY | 2022-08-29 00:49 | XMS_ITS | Encounter Summary ---
:1970 Author Organization [facility] [place] [address] Care Team Providers Name Role Phone DERREK Laureano, Aruna Primary Care Provider [phone] Reason for Visit Reason Comments Skin Lesion Encounter Details Date Type Department Care Team Description 01/18/2015 Office Visit Dermatology at [facility] Jorge Pretty MD [place] [address] [address] DERMATOLOGY [phone] [place], [place] [address] (Wo rk) Social History Tobacco Use Types Packs/Day Years Used Date Smoking Tobacco: Never Sex Assigned at Date Recorded Not on file documented as of this encounter Patient Instructions Patient InstructionsSamantha Hagan LPN - 01/18/2015 1:50 PM EDT Images from the original note were not included. [facility] Moles: After Your Visit Your Care Instructions Moles are skin growths made up of cells that produce color (pigment). A mole can appear anywhere on the skin, alone or in groups. Most people get a few moles during their first 20 years of life. They are usually brown in color but can be blue, black, or flesh-colored. Most moles are harmless and do not cause pain or other symptoms, unless you rub them or they bump against something. You usually do not need treatment for moles. But some can turn into cancer. Talk to your doctor if amole bleeds, itches, santos, or changes size or color. Also let your doctor know if you get a new mole. Make sure to wear sunscreen and other sun protection every day to help prevent skin cancer. Follow-up care is a barrett part of your treatment and safety. Be sure to make and go to all appointments, and call your doctor if you are having problems. It???s also a good idea to know your test resultsand keep a list of the medicines you take. How can you care for yourself at home? ?? Check all the skin on your body once a month for skin growths or other changes, such as in the color and feel of the skin. ?? supervising architect front of a full-length mirror. Look carefully at the front and back of your body. Then look at your right and left sides with your arms raised. ?? Bend your elbows and look carefully at your forearms, the back of your upper arms, and your palms. ?? Look at your feet, the bottoms of your feet, and the spaces between your toes. ?? Use a hand mirror to look at the back of your legs, the back of your neck, and your back, rear end (buttocks), and genital area. Part the hair on your head to look at your scalp. ?? If you see a change in a skin growth, contact your doctor. Look for: ?? A mole that bleeds. ?? A fast-growing mole. ?? A scaly or crusted growth on the skin. ?? A sore that will not heal. To prevent skin cancer ?? Always wear sunscreen on exposed skin. Make sure the sunscreen blocks ultraviolet rays (both UVA and UVB) and has a sun protection factor (SPF) of at least 15. Use it every day, even when it is cloudy. Some doctors may recommend a higher SPF, such as 30. ?? Wear a wide-brimmed hat and long sleeves and pants if you are going to be outdoors for very long. ?? Avoid the sun between 10 a.m. and 4 p.m., which is the peak time for the sun's ultraviolet rays. ?? Avoid sunburns, tanning booths, and sunlamps. ?? Be sure to protect children from the sun. Sunburns in childhood damage the skin and increase the risk of cancer. When should you call for help? Watch closely for changes in your health, and be sure to contact your doctor if: ?? A mole looks different than it did before. It may have changed in size, color, shape, or the way it looks. ?? You have a new mole. ?? You have a new pimple or skin growth that does not go away. Where can you learn more? Visit our health information library at [email or web address] You can also view health information on [employer], your personal patient account. Log in or sign up today. Enter M489 in the search box to learn more about Moles: After Your Visit. ?? [id number] [employer]. Care instructions adapted under license by [facility]. This care instruction is for use with your licensed healthcare professional. If you have questionsabout a medical condition or this instruction, always ask your healthcare professional. [employer] disclaims any warranty or liability for your use of this information. Content Version: 10.3.902864; Current as of: December 14, 2013 documented in this encounter Progress Notes Jorge Galindo MD - 01/18/2015 2:11 PM EDT Problem: Mole check. Carolina is a 44-year-old woman who would like to have a general skin checkup. She [place] of [place] and has had a lot of sun over the years. She has noted new moles and would like to have these checked. Physical examination reveals a blonde-haired, blue-eyed, fair-skinned, 44-year-old woman who has a 4-mm, light holt, compound versus intradermal nevus on the right lateral cheek. She has a 3-mm, compound versus intradermal nevus on her left chin. Otherwise, sun-exposed skin examination is unremarkable and benign. Assessment and Plan: Benign nevi. a. Patient reassured about benign nevi. b. I recommended use of Neutrogena sunscreen with Helioplex for longer protection when out on the boat; use at least an SPF 30. c. I encouraged wearing a broad-brimmed hat. I encouraged general sun avoidance precautions. d. Return to clinic here p.r.n. for new lesions/concerns. COPY: Jorge Cervantes M.D. documented in this encounter Plan of Treatment Not on filedocumented as of this encounter Visit Diagnoses Diagnosis Nevus Benign neoplasm of skin, site unspecifie d documented in this encounter Care Teams Netezza Architect Relationship Specialty Start Date End Date Aruna Rico PA PCP - General 12/11/14 documented as of this encounter
--- OUTSIDE RECORDS SUMMARY | 2022-08-29 00:49 | XMS_ITS | Encounter Summary ---
:1970 Author Organization [facility] [place] [address] Care Team Providers Name Role Phone DERREK Laureano, Aruna Primary Care Provider [phone] Encounter Details Date Type Department Care Team Description 07/06/2018 Telephone Orthopaedics at [facility] [place] Saeed Bella PA [facility] [place] [address] ORTHOPAEDICS [phone] [place] [phone] (Wo rk) Social History Tobacco Use Types Packs/Day Years Used Date Smoking Tobacco: Never Smokeless Tobacco: Never Alcohol Use Standard Drinks/Week Comments No 0 (1 standard drink = 0.6 oz pure alcoho l) Sex Assigned at Date Recorded Not on file documented as of this encounter Miscellaneous Notes Telephone Encounter - Saeed Bella PA - 07/06/2018 2:59 PM EDT Called to follow-up with her regarding MRI results and discuss options. Will try again tomorrow as her engineering secretary said that was when she would be in the office. documented in this encounter Plan of Treatment Not on filedocumented as of this encounter Visit Diagnoses Not on filedocumented in this encounter Care Teams Customer Support Executive Relationship Specialty Start Date End Date Aruna Rico PA PCP - General 12/11/14 documented as of this encounter
--- OUTSIDE RECORDS SUMMARY | 2022-08-29 00:49 | XMS_ITS | Encounter Summary ---
:1970 Author Organization [place] [address] Care Team Providers Name Role Phone DERREK Laureano, Aruna Primary Care Provider [phone] Encounter Details Date Type Department Care Team Description 07/07/2018 Telephone Orthopaedics at [facility] Saeed Bella PA [facility] [place] [address] ORTHOPAEDICS [phone] [place] [phone] (Wo rk) Social History Tobacco Use Types Packs/Day Years Used Date Smoking Tobacco: Never Smokeless Tobacco: Never Alcohol Use Standard Drinks/Week Comments No 0 (1 standard drink = 0.6 oz pure alcoho l) Sex Assigned at Date Recorded Not on file documented as of this encounter Miscellaneous Notes Telephone Encounter - Saeed Bella PA - 07/07/2018 1:08 PM EDT I called and spoke with Ms. Armendariz today with her MRI results. We discussed that she did have a partial tear of her rotator cuff with some osteophyte formation and it would be a good idea to start with some physical therapy for rotator cuff strengthening and scapular stabilization. She would like to schedule a follow up in about a month to give this some time to take effect and may want to proceed with an injection for diagnostic and therapeutic purposes if her shoulder does not get better. She was also scheduled for a hand appointment and was curious if this could be addressed on the same day as her shoulder. The patient is going to switch her current appointment on 08/11 ot 08/10 to save her a tripsince [place] 2 [place]. documented in this encounter Plan of Treatment Not on filedocumented as of this encounter Visit Diagnoses Not on filedocumented in this encounter Care Teams Waste Cotton Cleaner Relationship Specialty Start Date End Date Aruna Rico PA PCP - General 12/11/14 documented as of this encounter
== END ==
PROVIDERS: PCP Physician Assistant; Visit Provider Physician Assistant
DX: Z12.31 Encounter for screening mammogram for malignant neoplasm of breast (principal); Z80.3 Family history of malignant neoplasm of breast
CPT/HCPCS: 77063; 77067

== ENCOUNTER 2022-12-19 18:23 | Outpatient (REF) | payer MEDICAID, SELFPAY ==
[2022-12-19 18:40] LABS: Anion Gap 6.3 mmol/L (3-11); BUN 14 mg/dL (7-18); CO2 28.7 mmol/L (21.0-32.0); CREATININE 0.9 mg/dL (0.55-1.02); Calcium 9.3 mg/dL (8.5-10.1); Chloride 105 mmol/L (98-107); Estimated GFR 77.88 (mL/min/1.73m2); FREE T4 0.81 ng/dL (0.76-1.46); Glucose 90 mg/dL (74-106); Potassium 4.2 mmol/L (3.5-5.1); Sodium 140 mmol/L (136-145); TSH 2.52 uIU/mL (0.36-3.74)
[2022-12-19 21:35] LABS: HCT 39.8 % (36.0-46.0); HGB 12.6 g/dL (11.2-15.7); MCH 27.3 pg (27.0-33.0); MCHC 31.7 % (32.0-36.0); MCV 86 fL (80-95); MPV 11.1 fL (8.0-11.0); Platelet Count 338 10^3/uL (130-400); RBC 4.61 10^6/uL (3.93-5.22); RDW 13.8 % (11.7-14.6); RDW-SD 43.8 fL; WBC 3.78 10^3/uL (4.4-10.8)
== END 2022-12-19 18:24 | disposition home or self-care (01) ==
LOC: NCHCN 18:23
PROVIDERS: PCP Physician Assistant; Visit Provider Physician Assistant
DX: Z00.00 Encounter for general adult medical examination without abnormal findings (principal); Z13.228 Encounter for screening for other metabolic disorders; Z13.29 Encounter for screening for other suspected endocrine disorder
CPT/HCPCS: 80048; 85027; 84439; 84443

== ENCOUNTER 2022-12-24 11:51 | Outpatient (REF) | payer MEDICAID, SELFPAY ==
[2022-12-25 09:23] LABS: HIV-1/2 Ag & Ab Screen Negative (Negative)
[2022-12-25 09:28] LABS: Hepatitis C Ab w Rflx HCV PCR Negative (Negative)
[2022-12-25 12:46] LABS: Syphilis Serology (RPR) Negative (Negative)
[2022-12-25 14:20] LABS: Chlamydia Result Negative (Negative); GC Result Negative (Negative)
== END 2022-12-24 11:52 | disposition home or self-care (01) ==
LOC: NCHCN 11:51
PROVIDERS: PCP Physician Assistant; Visit Provider Physician Assistant
DX: Z11.3 Encounter for screening for infections with a predominantly sexual mode of transmission (principal); Z11.59 Encounter for screening for other viral diseases; Z11.4 Encounter for screening for human immunodeficiency virus [HIV]
CPT/HCPCS: 86803; 87389; 87491; 87591; 86592

== ENCOUNTER 2023-04-09 14:55 | Outpatient (REF) | payer MEDICAID, SELFPAY ==
[2023-04-13 12:44] LABS: Lyme Ab w Rflx to Lyme Confirm Positive (Negative)
[2023-04-13 14:19] LABS: Lyme IgG Ab Positive (Negative); Lyme IgM Ab Positive (Negative)
[2023-04-14 15:06] LABS: Anaplasma phagocytophilum Negative (Negative); B. miyamotoi PCR Negative (Negative); Babesia divergens/MO-1 Negative (Negative); Babesia duncani Negative (Negative); Babesia microti Negative (Negative); Ehrlichia chaffeensis Negative (Negative); Ehrlichia ewingii/canis Negative (Negative); Ehrlichia muris eauclairensis Negative (Negative)
== END 2023-04-09 14:56 | disposition home or self-care (01) ==
LOC: LBN 14:55
PROVIDERS: PCP Physician Assistant; Visit Provider Physician Assistant Medical
DX: R21 Rash and other nonspecific skin eruption (principal)
CPT/HCPCS: 86617; 87798; 86618

== ENCOUNTER → 2023-10-07 01:39 | Outpatient (CLI) | payer BC, SELFPAY ==
--- NOTE | 2023-10-07 | DI.MAMMO_ITS ---
Exam(s) MAMMO SCREENING EXAM: MAMMO SCREENING CLINICAL HISTORY: SCREENING FOR BREAST CANCER Z12.39 TECHNIQUE: Mammograms were interpreted according to the usual protocol including computer analysis w [employer] CAD system, tomosynthesis and C-view imaging. COMPARISON: 2016 through 2021 FINDINGS: The breasts are composed of heterogeneously dense fibroglandular densities, Breast Density category C . No suspicious masses or suspicious microcalcifications are seen. Benign calcifications again noted i n the upper inner quadrant of the left breast. No skin thickening or abnormal axillary lymph nodes are seen. There has been no significant change from prior exams. IMPRESSION: BI-RADS Category 2 - Negative Mammogram with benign findings. Yearly screening mammography is recom mended. Breast Density Category C, heterogeneously Dense. The mammogram demonstrates the patient's breast tissue is dense. Dense breast tissue is very common a nd is not abnormal but dense breast tissue can make it harder to find cancer on a mammogram. Also, de nse breast tissue may increase breast cancer risk. This information about the result of the mammogram report was provided to the patient to raise their awareness. Use this report when you speak with the patient about their risks for breast cancer, which includes their family history. At that time, you may recommend additional screening tests (Ultrasound or MRI) as they might be useful based on their r isk. A negative radiographic report should not delay biopsy if a dominant or clinically suspicious mass is present. Up to ten percent of cancers are not identified on mammography. A negative report may reinforce clinical impression. Adenosis and dense breasts may obscure an underlying neoplasm. False positive reports average 6 to 10%.
== END ==
PROVIDERS: PCP Physician Assistant; Visit Provider Physician Assistant
DX: Z12.31 Encounter for screening mammogram for malignant neoplasm of breast (principal)
CPT/HCPCS: 77063; 77067

== ENCOUNTER 2023-12-31 13:08 | Outpatient (REF) | payer BC, SELFPAY ==
[2023-12-31 15:53] LABS: MCH 27.4 pg (27.0-33.0); MCHC 31.7 % (32.0-36.0); MCV 86 fL (80-95); MPV 10.2 fL (8.0-11.0); Platelet Count 376 10^3/uL (130-400); RBC 4.75 10^6/uL (3.93-5.22); RDW 13.2 % (11.7-14.6); RDW-SD 41.2 fL; WBC 5.26 10^3/uL (4.4-10.8)
[2023-12-31 16:20] LABS: ALT 22 U/L (14-59); AST 20 U/L (15-37); Albumin 4.2 g/dL (3.4-5.0); Alkaline Phosphatase 47 U/L (46-116); Anion Gap 6.7 mmol/L (3-11); BUN 16 mg/dL (7-18); Bilirubin, Total 0.5 mg/dL (0.2-1.0); CO2 31.3 mmol/L (21.0-32.0); CREATININE 0.8 mg/dL (0.55-1.02); Calcium 9.3 mg/dL (8.5-10.1); Chloride 103 mmol/L (98-107); Estimated GFR 89.15 (mL/min/1.73m2); FREE T4 0.86 ng/dL (0.76-1.46); Glucose 90 mg/dL (74-106); Potassium 4.4 mmol/L (3.5-5.1); Sodium 141 mmol/L (136-145); TSH 2.35 uIU/Ml (0.36-3.74); Total Protein 7.2 g/dL (6.4-8.2)
== END 2023-12-31 13:09 | disposition home or self-care (01) ==
LOC: NCHCN 13:08
PROVIDERS: PCP Physician Assistant; Visit Provider Physician Assistant
DX: Z00.00 Encounter for general adult medical examination without abnormal findings (principal)
CPT/HCPCS: 80053; 85027; 84439; 84443

== ENCOUNTER → 2024-01-14 02:39 | Outpatient (CLI) | payer BC, SELFPAY ==
--- NOTE | 2024-01-14 | DI.MRI_ITS ---
Exam(s) MR BRAIN WO EXAM: MR BRAIN WO CLINICAL HISTORY: F07.81 Post concussive syndrome; persistent post concussive syndrome TECHNIQUE: Multiplanar multisequence MRI of the brain was performed. COMPARISON: No exams were available for comparison FINDINGS: Patient motion artifact is present. VENTRICLES AND EXTRA AXIAL SPACES: Normal in size and morphology for the patient's age. MIDLINE SHIFT: None. CEREBRAL PARENCHYMA: No focus of restricted diffusion to suggest acute infarct. No space-occupying le isadora identified. HEMORRHAGE: None. BRAINSTEM/CEREBELLUM: Normal. CALVARIUM: Normal. VISUALIZED PARANASAL SINUSES/MASTOIDS:There is mild mucosal thickening in the right maxillary sinus. Small mucous retention cyst is seen in the right maxillary sinus. The remaining visualized paranasa l sinuses are clear as are the mastoid air cells. TRIBAL OF CEBALLOS: Normal flow void. PITUITARY GLAND: Unremarkable. OTHER FINDINGS: None. IMPRESSION: 1. No acute intracranial process. 2. Mild right maxillary sinusitis. DATA REPOSITORY:
== END ==
PROVIDERS: PCP Physician Assistant; Visit Provider Psychiatry & Neurology Neurology
DX: F07.81 Postconcussional syndrome (principal); J32.0 Chronic maxillary sinusitis
CPT/HCPCS: 70551

== ENCOUNTER 2024-09-09 15:00 | Outpatient (REF) | payer BC, SELFPAY ==
[2024-09-09 15:37] LABS: HCT 38.4 % (36.0-46.0); HGB 12.2 g/dL (11.2-15.7); MCH 27.4 pg (27.0-33.0); MCHC 31.8 % (32.0-36.0); MCV 86 fL (80-95); MPV 10.8 fL (8.0-11.0); Platelet Count 313 10^3/uL (130-400); RBC 4.46 10^6/uL (3.93-5.22); RDW 13.1 % (11.7-14.6); RDW-SD 40.9 fL; WBC 3.37 10^3/uL (4.4-10.8)
[2024-09-09 16:05] LABS: BUN 15 mg/dL (7-18); CREATININE 0.9 mg/dL (0.55-1.02); Calcium 9.5 mg/dL (8.5-10.1); Chloride 107 mmol/L (98-107); Estimated GFR 76.92 (mL/min/1.73m2); Glucose 94 mg/dL (74-106); Potassium 4.8 mmol/L (3.5-5.1); Sodium 144 mmol/L (136-145); TSH 3.34 uIU/mL (0.36-3.74)
[2024-09-09 17:04] LABS: Iron 69 ug/dL (50-170); Total Iron Binding Capacity 334 ug/dL (250-450); Transferrin Sat 21 % (15-50)
[2024-09-09 17:34] LABS: Ferritin 44 ng/mL (8-252)
== END 2024-09-09 15:01 | disposition home or self-care (01) ==
LOC: NCHCN 15:00
PROVIDERS: PCP Physician Assistant; Visit Provider Physician Assistant
DX: R53.83 Other fatigue (principal)
CPT/HCPCS: 80048; 85027; 82728; 83540; 83550; 84439; 84443

== ENCOUNTER 2024-10-14 16:35 | Outpatient (REF) | payer BC, SELFPAY ==
[2024-10-14 15:38] LABS: Absolute Basophil Count 0.05 10^3/uL (0.0-0.2); Absolute Eosinophil Count 0.11 10^3/uL (0.0-0.7); Absolute Lymphocyte Count 1.74 10^3/uL (1.2-3.4); Absolute Monocyte Count 0.37 10^3/uL (0.1-0.8); Absolute Neutrophil Count 1.51 10^3/uL (1.2-6.7); Basophils % 1.3 %; Eosinophils % 2.9 %; HCT 39.2 % (36.0-46.0); HGB 12.6 g/dL (11.2-15.7); MCH 27.3 pg (27.0-33.0); MCHC 32.1 % (32.0-36.0); MCV 85 fL (80-95); MPV 10.1 fL (8.0-11.0); Monocytes % 9.8 %; Platelet Count 346 10^3/uL (130-400); RBC 4.61 10^6/uL (3.93-5.22); RDW 13.1 % (11.7-14.6); RDW-SD 40.3 fL; WBC 3.78 10^3/uL (4.4-10.8)
[2024-10-15 08:46] LABS: HIV-1/2 Ag & Ab Screen Negative (Negative)
== END 2024-10-14 16:36 | disposition home or self-care (01) ==
LOC: NCHCN 16:35
PROVIDERS: PCP Physician Assistant; Visit Provider Student in an Organized Health Care Education/Training Program
DX: D70.9 Neutropenia, unspecified (principal)
CPT/HCPCS: 87389; 85025

== ENCOUNTER 2024-11-05 05:54 | Emergency (ER) | payer BC, SELFPAY ==
--- NOTE | 2024-11-05 05:45 | RT.EKG_ITS ---
APPROVED REPORT Exam: Resting ECG Reason for Exam: Trouble breathing Patient Location: E HR:75 bpm ECG Measurements Heart Rate 75 AXIS NE 155 P 37 QRSd 92 QRS 27 QT 382 T 42 QTc 426 Conclusion Sinus rhythm \75 normal axis no stemi
[2024-11-05 05:58] VITALS: BP 117/79; PULSE 73; RESP 18; TEMP 36.8
[2024-11-05 06:17] VITALS: O2SAT 95
--- NOTE | 2024-11-05 06:30 | DI.RAD_ITS ---
Exam(s) XR CHEST 2V PA LATERAL EXAM: XR CHEST 2V PA LATERAL CLINICAL HISTORY: coughing, flu A+ 4 days ago, 7 days symptoms TECHNIQUE: 2D digital imaging was performed of the chest. Two images were obtained. PA and lateral views were obtained. COMPARISON: No exams were available for comparison FINDINGS: MEDIASTINUM: Normal. HEART: Normal. PULMONARY VASCULATURE: Normal. LUNGS: Clear. PLEURAL SPACE: No pleural effusion or pneumothorax. BONE:Within normal limits for the patient's age. OTHER FINDINGS:Normal. IMPRESSION: No acute pulmonary findings. DATA REPOSITORY: RADIATION DOSE DELIVERED:
--- NOTE | 2024-11-05 06:45 | ED.GENADUL_ITS ---
Discharge Plan Disposition Patient Disposition: Home Condition: Stable Discharge Details Clinical Impression: LLL pneumonia Primary Care Provider: Devan Fuentes ED Provider: Jon Crabtree Home Meds and New Rx's Prescriptions: New azithromycin 250 mg tablet 250 mg PO DAILY Qty: 4 0RF Rx Instructions: Begin 11/06/2024 (tomorrow) for 4 days Cepacol Sore Throat (homer-men) 15-2.6 mg lozenge 1 garth mucous membrane Q2H PRN (Reason: sore throat) Qty: 16 0RF albuterol sulfate 2.5 mg /3 mL (0.083 %) solution for nebulization 2.5 mg inhalation Q4H PRN (Reason: bronchospasm) Qty: 75 0RF No Action multivitamin Tablet 1 tab PO DAILY Discharge Instructions Instructions: Community-Acquired Pneumonia, Adult (DC) Additional Instructions: Take 1 Zithromax tablet daily, for the next 4 days, beginning tomorrow (11/06/2024). You should take 1 Aleve (naproxen) tablet every 8 hours as needed for symptoms of pain or fevers. You can take 2-3 325 mg acetaminophen tablets every 4-6 hours as needed for symptoms of additional pain relief or relief from fevers. Do not exceed more than 4 g of acetaminophen in a 24-hour period. You can use one of the Cepacol lozenges every 1-2 hours as needed for improvement in your throat discomfort. This medication contains benzocaine which is a topical anesthetic and should improve your throat discomfort. You can use the albuterol solution in your home nebulizer machine every 4 hours as needed for cough control. This medication should work better than onzn-sln-ecdacar cough suppressants. I would avoid using Mucinex, as this medication causes you to cough more. Follow-up with regular primary care doctor for reevaluation and further management, especially if symptoms not improving with this care plan. You can always return to the emergency room for any new concerns or sudden changes in your health which you feel requires emergency medical attention. Discharge Data Discharge Physician: Jon Crabtree [facility] General Date/Time Provider Initiated Documentation: 11/05/24 06:15 . HPI Narrative: The patient is a 54-year-old female, with no contributory past medical history, who presents to the emergency department this evening complaining of coughing (now productive of yellow/brownish sputum), chest wall discomfort from coughing, and a sore throat which has been ongoing for 7 days. The patient was seen by her primary care doctor 4 days ago and tested positive for influenza A by swab in their office. The primary care doctor recommended a series of rkog-fsa-axwvhaf medications including NyQuil and Mucinex, which the patient has been taking. She also used some albuterol from her son's nebulizer machine, and prior to coming in this morning she took a single doxycycline tablet from an old prescription. The patient tells me that she is miserable, and that she has a fear of actually coughing now because of the pain in her throat. She tells me that she has been having difficulty eating secondary to the difficulty with pain in her throat. Related Data Home Medications ?Medication ?Instructions ?Recorded ?Confirmed multivitamin 1 tab PO DAILY 04/04/20 06/25/20 albuterol sulfate 2.5 mg/3 mL 2.5 mg (3 mL) inhalation Q4H PRN 11/05/24 (0.083 %) solution for nebulization bronchospasm #75 mL azithromycin 250 mg tablet 250 mg PO DAILY #4 tabs 11/05/24 benzocaine 15 mg-menthol 2.6 mg 1 garth mucous membrane Q2H PRN sore 11/05/24 lozenges (Cepacol Sore Throat throat #16 ea (benzocaine-menthol)) Previous Rx's ?Medication ?Instructions ?Recorded albuterol sulfate 2.5 mg/3 mL 2.5 mg (3 mL) inhalation Q4H PRN 11/05/24 (0.083 %) solution for nebulization bronchospasm #75 mL azithromycin 250 mg tablet 250 mg PO DAILY #4 tabs 11/05/24 benzocaine 15 mg-menthol 2.6 mg 1 garth mucous membrane Q2H PRN sore 11/05/24 lozenges (Cepacol Sore Throat throat #16 ea (benzocaine-menthol)) Allergies Allergy/AdvReac Type Severity Reaction Status Date / Time amoxicillin (From Augmentin) Allergy Mild rash Verified 11/05/24 07:13 clavulanic acid (From Allergy Mild rash Verified 11/05/24 07:13 Augmentin) General Stated Complaint: RespSymp ORION: 3 Exam Const General: cooperative, healthy appearing and no acute distress Orientation: awake and oriented x3 [facility] Head: normal to inspection, normocephalic and atraumatic Ears: external ears normal and TM's normal bilaterally General nose exam: external nose normal Face and sinus: sinuses nontender Mouth: oral mucosae normal Throat: posterior oropharynx normal, tonsils normal and uvula midline Resp Effort & Inspection: normal respiratory effort, able to speak in complete sentences, no audible wheezes and cough Quality of cough: dry Auscultation: clear to auscultation bilaterally Cardio Rhythm: regular rhythm Heart Sounds: S1 normal GI Inspection: normal to inspection Palpation: soft Auscultation: normal bowel sounds Skin General skin exam: no rashes or lesions noted Lesions: no lesions Neuro General: patient awake, patient oriented x3, moves all extremities, no focal motor deficits and CN's II-XI intact bilaterally Extrem General: normal to inspection, no clubbing, no cyanosis and no edema Course Vital Signs Vital signs: Vital Signs Temperature 36.8 C 11/05/24 05:58 Pulse 73 11/05/24 05:58 Respiratory Rate 18 11/05/24 05:58 Blood Pressure 117/79 11/05/24 05:58 Temperature 36.8 C 11/05/24 05:58 Temperature Source Skin 11/05/24 05:58 Pulse 73 11/05/24 05:58 Respiratory Rate 18 11/05/24 05:58 Respiratory Effort Short of Breath 11/05/24 06:05 Respiratory Depth Normal 11/05/24 06:05 Blood Pressure 117/79 11/05/24 05:58 Blood Pressure Position Sitting 11/05/24 05:58 Pulse Oximetry 95 11/05/24 06:17 Oxygen Delivery Method Room Air 11/05/24 06:17 Oxygen Flow Rate 0 11/05/24 06:17 Medical Decision Making The patient was seen and examined. She was in no distress here in the emergency room and actually appears relatively well. There is no obvious rhinorrhea or postnasal drip on the patient's inspection. There is some mild erythema in the posterior oropharynx, but no lesions or plaques. There is no swelling or edema of the soft tissue that is visualized. The patient has normal air exchange and no increased work of breathing. She does have some ongoing coughing which she attempts to arrest because of the pain in her throat. The patient has a normal resting oxygen saturation of 99% on room air. I had her get up and ambulate around the room with the oxygen sensor on and she did not desaturate. The patient has been taking oral Tylenol and some rewv-nvk-fxouhfs mixed preparations of medications such as DayQuil and NyQuil, but the patient has not been taking any oral anti-inflammatory medications like ibuprofen or naproxen. These would most likely be better pain relievers for the patient. She is also not taking any medications that would help improve the discomfort in her throat, and I have ordered a Cepacol lozenge for her. The patient be given a DuoNeb here in the emergency room to see if this both improves her bronchospasm and if she has reduced coughing. She will undergo a chest x-ray to exclude any foot airspace disease that might of developed in the interval time period. The patient had an EKG here in the emergency room which is a normal sinus rhythm with a ventricular response rate of 75 bpm. There are no findings on this tracing that would be compatible with pattern injury ischemia, although there are some effusion on consecutive leads that have repolarization flattening. I do not anticipate that the patient will require admission to the hospital, but may require oral antibiotics if there is a focal pneumonia found on her chest x- ray. The patient does have what appears to be a small effusion in the left lung base with atelectasis compression in that base. I will recommend oral zithromax for the patient, as she has a reported allergy to amoxicillin and we have had some aminopenicillin pneumonias in the local area that have been resistant. I will recommend oral cepacol lozenges for her throat pain and I will recommend that she change from tylenol to oral naproxen for priomary [ain control. She does have a home nebulizer and might benefit from some albuterol intermittently thoughout the day to help with cough control. Quality:SDOH Health Related Social Needs: No Data to Display PFSH All Active Problems (Updated 11/05/24 @ 07:45 by Jon Crabtree MD) LLL pneumonia (Acute) Constipation (Acute) Right lower quadrant pain (Acute) Nephrolithiasis (Chronic) Medical History (Updated 11/05/24 @ 07:45 by Jon Crabtree MD) Tendon injury Left hand tendon surgery. Cellulitis Denies having a cellulitis. Pneumonia Anemia Asthma E. coli UTI (urinary tract infection) Surgical History (Updated 07/09/20 @ 12:08 by Chantell Thakur) History of colonoscopy (~06/2020) 06/29/20 Dr. Serg Dumont, hemorrhoids, no polyps, repeat colo 10 years H/O tubal ligation H/O section H/O left knee surgery Family History Father Bladder cancer Mother Bladder cancer Social History Smoking/Tobacco Use Status: Never Smoking risk assessment performed?: Yes Alcohol Intake: never Drug use: Never Substance use type: does not use Household members: spouse Current gender identity: female Do you feel safe at home: Yes Do you feel safe in your relationship?: Yes
[2024-11-05] MEDS: Ibuprofen 600 MG TAB PO (06:54)
[2024-11-05] MEDS: Albuterol/Ipratropium 3 ML UPD VIAL UPD (06:54)
[2024-11-05] MEDS: Azithromycin 250 MG TAB 500 MG PO (08:01)
[2024-11-05 08:13] VITALS: BP 107/72; PULSE 85; RESP 18; O2SAT 93
--- NOTE | 2024-11-05 08:59 | DI.VRAD_ITS ---
PROCEDURE INFORMATION: Exam: XR Chest Exam date and time: 11/05/2024 7:20 AM Age: 54 years old Clinical indication: Other: Coughing, flu a+ 4 days ago, 7 days symptoms TECHNIQUE: Imaging protocol: Radiologic exam of the chest. Views: 2 views. COMPARISON: No relevant prior studies available. FINDINGS: Lungs: No focal consolidation seen. Pleural spaces: No large pleural effusion seen. Heart/Mediastinum: No cardiomegaly. Bones/joints: No acute abnormality. IMPRESSION: No acute findings to explain reported symptoms. Dictated and Authenticated by: Rizwana Goodman MD. Orderin Leyda Webb MD
== END 2024-11-05 08:23 | disposition home or self-care (01) ==
PROVIDERS: Emergency Provider Emergency Medicine Emergency Medical Services; PCP Physician Assistant
DX: J18.9 Pneumonia, unspecified organism (principal); J10.1 Influenza due to other identified influenza virus with other respiratory manifestations
CPT/HCPCS: 93005; 99284; 71046; 93010; J7620

== ENCOUNTER 2025-02-06 13:56 | Outpatient (REF) | payer BC, SELFPAY ==
--- NOTE | 2025-02-06 11:15 | PAPFT_PTH ---
PATIENT: Carolina Armendariz LOC: [facility] U#:[id number] AGE/SX: 54/F ROOM: RE02/06/[address]: Devan Fuentes : 1970 BED: DIS: 02/06/2025 SPEC #: [id number] RECD: 02/06/25 17:40 STATUS: BHAVANA REQ #: [id number] AMELIA: 02/06/25 11:[address]: Devna Fuentes DEPT: [facility] Cytology RECD BY: Nichelle Patel Tissues: 1 - CX/ENDOCX FOR PAP SMEARS Procedures: PAP THIN PREP/UVM Screening Comments: [id number]
[2025-02-06 15:43] LABS: HCT 38.6 % (36.0-46.0); HGB 12.4 g/dL (11.2-15.7); MCH 27.5 pg (27.0-33.0); MCHC 32.1 % (32.0-36.0); MCV 86 fL (80-95); Platelet Count 316 10^3/uL (130-400); RBC 4.51 10^6/uL (3.93-5.22); RDW 13.2 % (11.7-14.6); RDW-SD 41.6 fL; WBC 4.23 10^3/uL (4.4-10.8)
== END 2025-02-06 13:57 | disposition home or self-care (01) ==
LOC: NCHCN 13:56
PROVIDERS: PCP Physician Assistant; Visit Provider Physician Assistant
DX: D72.818 Other decreased white blood cell count (principal); Z12.4 Encounter for screening for malignant neoplasm of cervix
CPT/HCPCS: 85027; 88142

== ENCOUNTER 2025-04-20 00:44 | Outpatient (CLI) | payer BC, SELFPAY ==
--- NOTE | 2025-04-20 | DI.MAMMO_ITS ---
Exam(s) MAMMO SCREENING EXAM: MAMMO SCREENING CLINICAL HISTORY: SCREENING,Z12.31 TECHNIQUE: Bilateral full field digital CC and MLO mammographic images were obtained with 3D tomosynthesis and utilizing computer aided detection (CAD). COMPARISON: Comparison is made with prior examinations. FINDINGS: Masses/Architectural Distortion: No suspicious masses or areas of architectural distortion are present. Microcalcifications: No suspicious pleomorphic-type are seen. Stable benign type calcifications are seen in the left breast. Skin Thickening/Nipple Retraction: None. IMPRESSION: 1. No significant interval change with no specific features of malignancy noted. 2. Unless there is more urgent need, screening mammography is recommended, as per [place] [employer] guidelines. BI-RADS Category 1 - Negative Breast Density - Category C - The breast are heterogeneously dense, which may obscure small masses. Breast density Category C or D implies that the patient has dense breast tissue. Dense breast tissue can make it harder to find cancer on a mammogram. Dense breast tissue is also associated with an increased risk of breast cancer. This information about the result of the mammogram report was provided to the patient to raise their awareness. Use this report when you speak with the patient about their risks for breast cancer, which includes their family history. At that time, you may recommend additional screening tests (Ultrasound or MRI) as these tests may add significant information. A negative radiographic report should not delay biopsy if a dominant or clinically suspicious mass is present. Up to ten percent of cancers are not identified on mammography. A negative report may reinforce clinical impression. Adenosis and dense breasts may obscure an underlying neoplasm. False positive reports average 6 to 10%. Patient will receive a letter notifying them of these results.
== END 2025-04-20 01:04 ==
LOC: DI 00:45
PROVIDERS: PCP Physician Assistant; Visit Provider Physician Assistant
DX: Z12.31 Encounter for screening mammogram for malignant neoplasm of breast (principal); R92.333 Mammographic heterogeneous density, bilateral breasts
CPT/HCPCS: 77063; 77067